=== PATIENT | female | born 1965 ===

== ENCOUNTER 2018-09-24 11:00 | Outpatient (CLI) | payer OTHER ==
--- NOTE | 2018-09-24 13:24 | ULT ---
SOFT TISSUE NECK ULTRASOUND: HISTORY: Posterior neck fullness. The patient feels a lump. COMPARISON: None. TECHNIQUE: Targeted sonographic images in the region of concern were performed. Static images are reviewed. FINDINGS: Static images demonstrate normal soft tissue echotexture. No solid or cystic masses. No evidence of lymphadenopathy. IMPRESSION: Unremarkable soft tissue neck ultrasound. Given the patient's history, postcontrast soft tissue neck CT is recommended. POS: [facility]
== END 2018-09-24 11:01 | disposition home or self-care (01) ==
LOC: SCSULT 11:00
PROVIDERS: ATTEND Family Medicine
DX: R22.1 Localized swelling, mass and lump, neck (principal)
CPT/HCPCS: 76536

== ENCOUNTER 2019-02-07 10:50 | Outpatient (CLI) | payer OTHER ==
--- NOTE | 2019-02-07 11:42 | MMO ---
Bilateral MAMMO Bilat Screen [facility]. CLINICAL HISTORY: Patient is 53 years old and is seen for screening. The patient has no family history of breast cancer. The patient has no personal history of cancer. VIEWS: The views performed were: bilateral craniocaudal and bilateral mediolateral oblique. FILMS COMPARED: The present examination has been compared to a prior imaging study performed at [facility] on 03/10/2014. This study has been interpreted with the assistance of computer-aided detection. MAMMOGRAM FINDINGS: The breasts are heterogeneously dense, which could obscure a lesion on mammography. There are no suspicious masses, suspicious calcifications, or new areas of architectural distortion. IMPRESSION: THERE IS NO MAMMOGRAPHIC EVIDENCE OF MALIGNANCY. A ROUTINE FOLLOW-UP MAMMOGRAM IN 1 YEAR IS RECOMMENDED. ACR BI-RADS Category 1 - Negative MAMMOGRAPHY NOTE: 1. A negative mammogram report should not delay a biopsy if a dominant of clinically suspicious mass is present. 2. Approximately 10% to 15% of breast cancers are not detected by mammography. 3. Adenosis and dense breasts may obscure an underlying neoplasm. Reported by: MARTHA CAMPOVERDE MD Electonically Signed: [id number]
== END 2019-02-07 10:51 | disposition home or self-care (01) ==
LOC: SCSMAMMO 10:50
PROVIDERS: ATTEND Family Medicine
DX: Z12.31 Encounter for screening mammogram for malignant neoplasm of breast (principal)
CPT/HCPCS: 77067